=== PATIENT | male | born 2000 | race Caucasian/White ===

== ENCOUNTER 2024-08-18 06:04 | Day surgery (SDC) | payer BC ==
[2024-08-14 12:04] VITALS: BMI 26.4
[2024-08-18] MEDS ORDERED: AFRIN NASAL MIST 15 ML BOT ONE (06:38)
[2024-08-18] MEDS ORDERED: Oxymetazoline HCl 0.05% ( 15 ML ) ONE (07:10)
[2024-08-18] MEDS ORDERED: Acetaminophen 500 MG TAB ONE (08:32)
[2024-08-18] MEDS ORDERED: Dexamethasone 20 MG/5 ML VIAL ONE (08:42)
[2024-08-18] MEDS ORDERED: fentaNYL 50 mcg/mL 1 mL Vial ONE (08:42)
[2024-08-18] MEDS ORDERED: PROPOFOL 20 ML ONE (08:42)
[2024-08-18] MEDS ORDERED: Midazolam HCl 2 mg/2 ml Vial ONE (08:42)
[2024-08-18] MEDS ORDERED: Ondansetron PF 4 MG/2 ML Vial ONE (08:42)
[2024-08-18] MEDS ORDERED: SUGAMMADEX SODIUM 200 MG/2 ML VIAL ONE (08:42)
[2024-08-18] MEDS ORDERED: Rocuronium Bromide 10 MG/ML (10ML VIAL) ONE (08:42)
[2024-08-18] MEDS ORDERED: Lidocaine 1% PF 5 ML VIAL ONE (08:42)
[2024-08-18] MEDS ORDERED: EPINEPHrine 1 MG/ML VIAL ONE (08:49)
[2024-08-18] MEDS ORDERED: Mupirocin 2% Ointment 22 GM Tube ONE (08:59)
[2024-08-18] MEDS ORDERED: PHENYLEPHRINE-NS 100 MCG/ML 10 ML SYRINGE ONE (09:45)
[2024-08-18] MEDS ORDERED: Vasopressin 20 UNITS/ML VIAL ONE (10:25)
[2024-08-18] MEDS ORDERED: HYDROcodone/Acetaminophen 5/325 mg Tablet ONE (12:51)
== END 2024-08-18 13:15 | disposition home or self-care (01) ==
LOC: CSHSDC 06:04
PROVIDERS: ATTEND Otolaryngology
PROC: 09BM8ZZ Excision of Nasal Septum, Via Natural or Artificial Opening Endoscopic (ICD-10-PCS; principal; 2024-08-18)
DX: J34.2 Deviated nasal septum (principal); J34.3 Hypertrophy of nasal turbinates; F17.290 Nicotine dependence, other tobacco product, uncomplicated
CPT/HCPCS: J0171; J1100; J2250; J2405; J2704; J3010